=== PATIENT | male | born 1950 ===

== ENCOUNTER 2021-04-19 19:43 | Emergency (ER) | payer OTHER, MEDICARE ==
[2021-04-19] MEDS ORDERED: Morphine 4 MG/ML VIAL ONE (21:23)
== END 2021-04-19 22:42 | disposition home or self-care (01) ==
LOC: ERS 19:43
DX: S22.42XA Multiple fractures of ribs, left side, initial encounter for closed fracture (principal); S50.02XA Contusion of left elbow, initial encounter; I10 Essential (primary) hypertension; E78.00 Pure hypercholesterolemia, unspecified; E78.5 Hyperlipidemia, unspecified; W00.0XXA Fall on same level due to ice and snow, initial encounter
CPT/HCPCS: 96372; J2270